=== PATIENT | female | born 1995 | race Caucasian/White ===

== ENCOUNTER 2016-07-12 12:34 | Emergency (ER) ==
[2016-07-12 12:50] VITALS: BP 117/74
--- NOTE | 2016-07-12 13:03 | PROVIDER DOCUMENTATION ---
HPI-General Adult - General Source: patient - History of Present Illness -Gen Adult Nature of Presenting Problems: 16 WEEKS PRESENTS TO ER WITH CC OF RHINITIS,ITCHY EYES,WATERY EYES, SNEEZING X 2 DAY WITH NAUSEA. PT REPORTS SHE HAS RAN OUT OF HER PHENERGAN FOR HYPEREMESIS. DENEIS VAGINAL BLEEDING,ABD PAIN,F,COUGH,SOB. Severity: reports: moderate Onset/Duration: reports: 2 days ago Timing: reports: still present Similar Symptoms Previously?: No Recently seen or treated by another doctor?: No <Radha Coelho - Last Filed: 07/12/16 13:00> <Butch Eddy - Last Filed: 07/12/16 13:06> - General Chief Complaint: Female Stated Complaint: 16WKS PREG/VOMITING/WEAKNESS Time Seen by Provider: 07/12/16 12:44 Allergies/Adverse Reactions: Patient Allergies Allergy/AdvReac Type Severity Reaction Status Date / Time Penicillins Allergy Mild RASH Verified 05/16/16 13:04 birthcontrol pill Allergy Mild WHELPS ON Uncoded 05/16/16 13:04 LEGS Home Medications: Home Medication List Medication Instructions Recorded Confirmed Last Taken Type Pnv No.118/Iron Fumarate/FA 1 each PO HS 05/16/16 05/16/16 05/15/16 20:00 History [ 19 Chewable Tablet] Fluticasone Propionate [Flonase 9.9 ml NS DAILY #1 spray.susp 07/12/16 Unknown Rx Allergy Relief] Loratadine [Claritin] 10 mg PO QHS #90 tablet 07/12/16 Unknown Rx Promethazine [Phenergan] 25 mg .SEE ORDER BID #60 ampul 07/12/16 Unknown Rx Review of Systems - Adult - REVIEW OF SYSTEMS - ADULT Constitutional: denies: chills, fever, fatique Eyes: reports: no symptoms reported Ears, Nose, Mouth & Throat: reports: sinus problem. denies: ear pain, throat pain Cardiovascular: denies: chest pain, irregular heart rate, orthopnea, syncope Respiratory: denies: cough, shortness of breath, wheezing Gastrointestinal: reports: nausea. denies: abdominal pain, diarrhea, vomiting Genitourinary: reports: no symptoms reported Musculoskeletal: reports: no symptoms reported Integumentary: reports: no symptoms reported Neurological: reports: no symptoms reported Psychiatric: reports: no symptoms reported Endocrine: reports: no symptoms reported Hematologic/Lymphatic: reports: no symptoms reported Allergic/Immunologic: reports: no symptoms reported All Other Systems: Reviewed and Negative <Radha Coelho - Last Filed: 07/12/16 13:00> Past History - Adult - PAST MEDICAL HISTORY-ADULT Review of Records: reports: Nursing Assessment Review Major Childhood Illnesses: reports: denies history Cardiovascular: reports: denies history Respiratory: reports: denies history Gastrointestinal: reports: cholelithiasis Obstetrical/Gynecological: reports: denies history Genitourinary: reports: chronic UTI's Musculoskeletal: reports: denies history Neurological: reports: denies history Endocrine/Immune: reports: anemia, hypoglycemia Other Conditions: reports: denies history - PRIOR SURGERIES/PROCEDURES Surgical/Procedure History: reports: cholecystectomy, - IMMUNIZATION STATUS Childhood Immunizations: See Nurse Assessment Flu Vaccine: See Nurse Assessment - FAMILY HISTORY Family History: reviewed, not pertinent - SOCIAL HISTORY Smoking: denies Substance Use: none/never <Radha Coelho - Last Filed: 07/12/16 13:00> Physical Exam-General - PHYSICAL EXAM-ADULT Initial Vital Signs Reviewed: Yes - CONSTITUTIONAL General Appearance: appears well, alert, no apparent distress - EYES Eyes: PERRL/EOMI - HEAD, EARS, NOSE, MOUTH & THROAT HENMT: moist mucous membranes, normal ENT inspection, TMs normal, pharynx normal - NECK Neck: non-tender, full range of motion, supple, normal inspection - RESPIRATORY Respiratory: chest non-tender, lungs clear, normal breath sounds, no pleuratic chest pain, no respiratory distress, no accessory muscle use - CARDIOVASCULAR Cardiovascular: regular rate, rhythm - GASTROINTESTINAL (ABDOMEN) Abdominal Exam: non tender, soft, no organomegaly, no pulsatile mass - MUSCULOSKELETAL Back Exam: normal inspection, no CVA tenderness, no vertebral tenderness Extremity: normal range of motion, non-tender - SKIN Integumentary: normal color, normal turgor, warm/dry - PSYCHIATRIC Psych/Mental Status: normal mood/affect, normal thought content, normal thought process, oriented x 3 <Radha Coelho - Last Filed: 07/12/16 13:00> Progress - PLAN OF CARE/RESULTS Progress/Plan/Lab Results: Orders Category Date Time Status ED: Orthostatic Vital Signs (E as directed Care 07/12/16 12:42 Active FHT [ Heart Tones] NOW Care 07/12/16 12:43 Active Vital Signs - 24 hr 07/12/16 07/12/16 12:36 12:50 Temperature 98 F Pulse Rate 106 H Pulse Rate [ 96 H Sitting] Pulse Rate [ 97 H Standing] Pulse Rate [ 94 H Supine] Respiratory 18 Rate Blood Pressure 146/72 Blood Pressure 118/75 [Sitting] Blood Pressure 123/75 [Standing] Blood Pressure 117/74 [Supine] O2 Sat by Pulse 100 Oximetry <Radha Coelho - Last Filed: 07/12/16 13:00> Departure - Departure Time of Disposition Order: 13:02 Certified Medical Emergency: Emergent <Radha Coelho - Last Filed: 07/12/16 13:00> - Departure Time of Disposition Order: 13:03 Certified Medical Emergency: Emergent <Butch Eddy - Last Filed: 07/12/16 13:06> - Departure DIAGNOSIS: Nausea Allergic rhinitis Qualifiers: Allergic rhinitis trigger: unspecified Allergic rhinitis seasonality: unspecified seasonality Qualified Code(s): J30.9 - Allergic rhinitis, unspecified Disposition: HOME 01 Condition: Stable Additional Instructions: ED Follow Up Instructions: You have been treated by a care provider in the Emergency Department. These instructions are being provided to you so you can have an understanding of how to care for yourself upon discharge. Upon discharge from the Emergency Department, you are responsible for making arrangements for follow-up care by a physician of your choice. Take all prescribed medications as directed. Return to the Emergency Department immediately for any new or worsening symptoms. You may call the Physician Referral phone number at [phone] to obtain a list of Physicians who are taking new patients. Prescriptions: Loratadine [Claritin] 10 mg PO QHS #90 tablet Fluticasone Propionate [Flonase Allergy Relief] 9.9 ml NS DAILY #1 spray.susp Promethazine [Phenergan] 25 mg .SEE ORDER BID #60 ampul Referrals: Melida Pedro CRNP [Primary Care Provider] - Attestation - Scribe Verification/Attestation Scribe:: Radha Coelho Acting as Scribe for:: Butch Eddy Scribe documention review:: This chart was documented by a scribe and accurately reflects the service the provider performed and the decisions made by the provider. <Radha Coelho - Last Filed: 07/12/16 13:00> Physician Attestation
[2016-07-12] MEDS ORDERED: PHENERGAN PO ONE (13:08)
== END 2016-07-12 13:16 | disposition home or self-care (01) ==
LOC: P.ED 12:34
DX: O26.892 Other specified pregnancy related conditions, second trimester (principal); J30.9 Allergic rhinitis, unspecified; R11.0 Nausea; R06.7 Sneezing; O21.9 Vomiting of pregnancy, unspecified; Z3A.18 18 weeks gestation of pregnancy; Z87.440 Personal history of urinary (tract) infections
CPT/HCPCS: 99282

== ENCOUNTER 2016-11-30 05:12 | Inpatient (IN) ==
[2016-11-28 09:33] LABS: MANUAL DIFF NEEDED? NO
[2016-11-28 09:41] LABS: BASO% 0.2 % (0.0-0.8); HEMATOCRIT 41.3 % (37.0-47.0); HEMOGLOBIN 13.8 g/dL (12.0-16.0); IMM GRAN# 0.09 X1000 (0.0-0.04); IMM GRAN% 0.9 % (0.0-0.5); LYMPH# 1.79 X1000 (1.2-3.4); LYMPH% 17.6 % (20.5-51.1); MCH 29.5 PG (27-31); MCHC 33.4 g/dL (33-37); MCV 88.2 FL (81-99); MONO# 0.57 X1000 (0.11-0.59); MONO% 5.6 % (1.7-9.3); MPV 10.8 FL (7.4-10.4); NEUT% 74.7 % (42.2-75.2); PLT 232 X1000 (130-400); RBC 4.68 XMIL (4.2-5.4)
[2016-11-30] MEDS ORDERED: LR 1,000 ML IV SCH (05:34)
[2016-11-30] MEDS ORDERED: PEPCID IV ONE (05:42)
[2016-11-30] MEDS ORDERED: SODIUM CHLORIDE 0.9% INJ ONE (05:42)
[2016-11-30] MEDS ORDERED: KEFZOL 1 GM/D5W 1 GM/50 ML IVPB IV ONE (05:45)
[2016-11-30] MEDS ORDERED: DURAMORPH ONE (06:39)
[2016-11-30] MEDS ORDERED: PITOCIN 20 UNITS/LR 0 UNITS/0 ML IV.SOLN ONE (06:40)
[2016-11-30] MEDS ORDERED: BICITRA PO ONE (06:41)
--- NOTE | 2016-11-30 07:35 | HISTORY AND PHYSICAL ---
CHIEF COMPLAINT: History of section with desire for repeat. HISTORY OF PRESENT ILLNESS: This is 21-year-old, G 3, P 1-0-2-0 with intrauterine at 39 plus 0 weeks by 11 plus 1 week ultrasound, EDC 12/07/2016, who presents to [facility] for a repeat section. Patient's care this has been relatively uncomplicated. The patient has good movement. No loss of fluid. No vaginal bleeding. Occasional contractions. The patient denied headaches, vision changes, chest pain, shortness of breath, change in bowel or bladder habits. OBSTETRICAL HISTORY: G 1, full-term section. Child of a brain tumor in 2016. G 2, intrauterine demise of twin delivered via . 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 PAST MEDICAL HISTORY: Denies. PAST SURGICAL HISTORY: Significant for section x2, cholecystectomy. MEDICATIONS: vitamins. ALLERGIES: Penicillin which causes "fainting". SOCIAL: Denies alcohol, tobacco, or illicit drug use. FAMILY HISTORY: Significant for diabetes in her mother, lung cancer in her mother, and brain cancer in her son. REVIEW OF SYSTEMS: Review of systems is negative. PHYSICAL EXAMINATION: GENERAL: Well-developed, well-nourished, white female, in no acute distress. HEENT: Pupils equally round, react to light. Extraocular muscles intact. CHEST: Clear to auscultation bilaterally. CV: Regular rate and rhythm. No murmurs, rubs, or gallops. ABDOMEN: Soft, nontender, gravid. EXTREMITIES: No clubbing, cyanosis, or edema. SKIN: No focal lesions. NEUROLOGIC: No focal deficits. ASSESSMENT AND PLAN: 1. Intrauterine at 39 plus 0 weeks. 2. History of section x2 with desire for repeat. PLAN: Plan is for a repeat low transverse section. The risks and benefits of the above procedure were discussed with the patient including the risks of bleeding, infection, injury to bowel and bladder. Patient states that she understands these risks and would like to proceed forward. cc: Suman Law MD
[2016-11-30] MEDS ORDERED: PITOCIN ONE (07:36)
[2016-11-30] MEDS ORDERED: TORADOL ONE (07:44)
[2016-11-30] MEDS ORDERED: ZOFRAN ONE (07:56)
[2016-11-30] MEDS ORDERED: NEO-SYNEPHRINE ONE (07:56)
[2016-11-30] MEDS ORDERED: CYTOTEC PO PRN (08:10)
[2016-11-30] MEDS ORDERED: HYDROXYZINE IM PRN (08:10)
[2016-11-30] MEDS ORDERED: AMBIEN PO PRN (08:10)
[2016-11-30] MEDS ORDERED: PERCOCET-5 PO PRN (08:10)
[2016-11-30] MEDS ORDERED: MYLICON PO PRN (08:10)
[2016-11-30] MEDS ORDERED: HYDROXYZINE PO PRN (08:10)
[2016-11-30] MEDS ORDERED: PITOCIN 20 UNITS/LR 20 UNITS/1,000 ML IV.SOLN IV ONE (08:10)
[2016-11-30] MEDS ORDERED: PITOCIN IM PRN (08:10)
[2016-11-30] MEDS ORDERED: PHENERGAN IM PRN (08:10)
[2016-11-30] MEDS ORDERED: DULCOLAX PR PRN (08:10)
[2016-11-30] MEDS ORDERED: BOOSTRIX VACCINE IM ONE (08:10)
[2016-11-30] MEDS ORDERED: M-M-R II VACCINE SUBQ ONE (08:10)
[2016-11-30] MEDS ORDERED: BICITRA PO SCH (09:00)
--- NOTE | 2016-11-30 09:09 | OPERATIVE NOTE ---
PROCEDURE DATE: 11/30/2016 PRINCIPAL DIAGNOSES: 1. Intrauterine at 39 plus 0 weeks. 2. History of section x2 with desire for repeat. POSTOP DIAGNOSES: 1. Intrauterine at 39 plus 0 weeks. 2. History of section x2 with desire for repeat. PROCEDURE: Repeat low transverse section. SURGEON: Suman Law MD. CONCRETE CARPENTER: Stevie Gr MD. ANESTHESIA: [place]. FINDINGS: Normal uterus, ovaries, and bilateral fallopian tubes. COMPLICATIONS: None apparent. ESTIMATED BLOOD LOSS: 700 mL. SPECIMENS REMOVED: Placenta, cord blood. OPERATIVE COURSE: After the patient was identified and consent was reviewed, spinal anesthesia was administered without complication. The patient was placed on the operative table in the dorsal supine position with a leftward tilt. Abdomen was prepped and draped in normal sterile fashion. Pfannenstiel skin incision was made and carried through the underlying layer of fascia. This was extended laterally with Wright scissors. Superior portion of the fascial incision was grasped with Rip clamps, elevated, and the underlying rectus muscle dissected off with Wright scissors. Inferior portion was performed in a similar manner. The rectus muscles were then identified and in the midline. The peritoneum was identified and entered sharply. Bladder blade was then inserted. Low transverse hysterotomy was made. Membranes were ruptured. Clear fluid noted. Infant found to be in cephalic presentation. Infant delivered atraumatically. Nose and mouth were bulb suctioned. Cord was clamped and cut. The was handed off to the waiting nursing staff. The placenta was then manually extracted. The uterus was exteriorized and cleaned of all clots and debris. The hysterotomy was repaired with 0 chromic in a running, locked fashion. A second 0 chromic was needed to achieve adequate hemostasis in a [id number] fashion at the right aspect of the hysterotomy site. The uterus was then returned to the intraperitoneal space where again adequate hemostasis was noted at the hysterotomy. The peritoneum was then reapproximated using 0 chromic. The fascia was reapproximated using 0 Vicryl. Subcutaneous tissue was closed with plain gut suture. The skin was closed with 4-0 Biosyn as well as Dermabond. The patient tolerated the procedure well. She has taken to the recovery room afterwards in stable condition. cc: Suman Law MD
[2016-11-30] MEDS: TORADOL IV SCH ×3 (11:11→20:05)
[2016-11-30] MEDS ORDERED: ZOFRAN IV PRN (13:01)
[2016-11-30] MEDS: MYLICON PO SCH ×2 (14:12→20:05)
[2016-11-30] MEDS: PITOCIN 10 UNITS/LR 10 UNIT/1,000 ML IV.SOLN IV SCH (16:51)
[2016-11-30] MEDS: PERICOLACE PO SCH (20:05)
[2016-12-01] MEDS: PITOCIN 10 UNITS/LR 10 UNIT/1,000 ML IV.SOLN IV SCH (01:04)
[2016-12-01] MEDS: TORADOL IV SCH (01:52)
[2016-12-01 06:11] LABS: HEMATOCRIT 37.6 % (37.0-47.0); HEMOGLOBIN 12.7 g/dL (12.0-16.0); MCHC 33.8 g/dL (33-37); MCV 88.9 FL (81-99); MPV 11.2 FL (7.4-10.4); RBC 4.23 XMIL (4.2-5.4)
[2016-12-01] MEDS ORDERED: LR 1,000 ML IV SCH (08:11)
[2016-12-01] MEDS ORDERED: D/C PCA XX ONE (09:00)
[2016-12-01] MEDS: MYLICON PO SCH ×4 (09:35→21:05)
[2016-12-01] MEDS: PERCOCET-10 PO PRN ×3 (12:47→21:05)
[2016-12-01] MEDS: PERICOLACE PO SCH (21:05)
[2016-12-02] MEDS: PERCOCET-10 PO PRN ×4 (03:25→20:32)
[2016-12-02] MEDS: MYLICON PO SCH ×4 (09:44→20:24)
[2016-12-02] MEDS: MOTRIN PO PRN (14:16)
[2016-12-02] MEDS: PERICOLACE PO SCH (20:24)
[2016-12-03] MEDS: MOTRIN PO PRN ×2 (01:43→10:07)
[2016-12-03] MEDS: PERCOCET-10 PO PRN ×2 (01:43→10:07)
[2016-12-03] MEDS: MYLICON PO SCH (09:16)
[2016-12-03 11:32] VITALS: BP 137/85
--- NOTE | 2016-12-03 15:25 | DISCHARGE SUMMARY ---
ADMISSION DATE: 11/30/2016 DISCHARGE DATE: 12/03/2016 ADMITTING DIAGNOSES: 1. Term . 2. Previous section requesting repeat section. PRINCIPLE PROCEDURE: Repeat section. SUMMARY: Shruthi Pedroza is a 21-year-old 3, para 1-0-2-0 who previously had a section and she was admitted to the hospital for a repeat per her request. Dr. Law performed the surgery and delivered a 7 pound 13 ounce female with Apgars of 9 at 1 minute and 10 at 5 minutes. There were no intraoperative complications. The patient did well after surgery. She remained afebrile. All vital signs were stable. She had admission hemoglobin and hematocrit of 13.8/41.3 discharge hemoglobin and hematocrit being 12.7/37.6. On the day of discharge cardiac and pulmonary examinations normal. Bowel and bladder function was normal. Incision was clean and dry. She was having scant vaginal bleeding. Ms. Pedroza is being discharged today, will be seen back in the office in 1 week. Routine discharge instructions, activity limitations and precautions were discussed. She will continue vitamins and she is given prescriptions for Percocet 10 #30 and Motrin 800 mg for postoperative pain. cc: MD Suman Koo MD
== END 2016-12-03 12:20 | disposition home or self-care (01) ==
LOC: P.LD 05:12 → P.WC 10:01
PROVIDERS: ADMIT Obstetrics & Gynecology; ATTEND Obstetrics & Gynecology